=== PATIENT | male | born 1975 | race Caucasian/White ===

== ENCOUNTER 2023-01-13 17:02 | Emergency (ER) | payer OTHER ==
[2023-01-13 17:18] VITALS: BP 115/70; PULSE 80; RESP 20; TEMP 98; BMI 25.8
[2023-01-13] MEDS ORDERED: IBUPROFEN 600 MG TABLET (FP) PO ONE ×2 (17:44→17:48)
== END 2023-01-13 18:32 | disposition home or self-care (01) ==
LOC: JERFT 17:02
DX: S93.492A Sprain of other ligament of left ankle, initial encounter (principal); M25.472 Effusion, left ankle; M25.572 Pain in left ankle and joints of left foot; W50.2XXA Accidental twist by another person, initial encounter; Y93.01 Activity, walking, marching and hiking; Y92.009 Unspecified place in unspecified non-institutional (private) residence as the place of occurrence of the external cause
CPT/HCPCS: 73610-TC-LT-FY; 73630-TC-LT; 99283-25